=== PATIENT | male | born 1930 | race Caucasian/White ===

== ENCOUNTER 2016-06-17 09:54 | Emergency (ER) | payer MEDICARE ==
[~2016-06-17] VITALS: Ht 172.7 cm; Wt 84.1 kg
[~2016-06-17 09:54] MED LIST: ASPIRIN E.C. 8181 MG PO; COZAAR100 MG PO; ZESTRIL 10MG10 MG PO; ZOCOR 20MG20 MG PO; ZOFRAN ODT4 MG PO
[2016-06-17 10:00] VITALS: TEMP 98
[2016-06-17 12:45] LABS: BASO % 0.5 % (0.0-2.0); EOS # 0.2 (0.0-0.7); EOS % 2.9 % (0-4.0); GRAN % 60.7 % (42.2-75.2); HEMATOCRIT 45.5 % (42.0-52.0); HEMOGLOBIN 15.5 g/dl (13.5-18.0); LYMPH # 1.8 (1.2-3.4); LYMPH % 27.3 % (20.0-51.0); MEAN CELL VOLUME 87 fl (80.0-100.0); MEAN CORPUSCULAR HEMOGLOBIN 30 pg (27.0-31.0); MEAN CORPUSCULAR HGB CONC 34 g/dl (33.0-37.0); MEAN PLATELET VOLUME 9.5 fl (7.4-10.4); MONO # 0.5 (0.1-0.6); MONO % 8.1 % (1.7-9.3); PLATELET COUNT 158 K/mm3 (130-400); RED BLOOD COUNT 5.22 M/mm3 (4.20-5.60); WHITE BLOOD COUNT 6.6 K/mm3 (4.8-10.8)
[2016-06-17 12:50] LABS: CALCIUM 10.5 mg/dL (8.4-10.2); CREATININE, serum 1.24 mg/dL (0.66-1.25); POTASSIUM 4.6 mmol/L (3.4-5.0)
[2016-06-17] MEDS ORDERED: NORVASC 5MG5 MG/TAB PO (13:52)
[2016-06-17 14:03] VITALS: BP 194/91; PULSE 50
== END 2016-06-17 14:06 | disposition home or self-care (01) ==
LOC: COL.ER 09:54
PROVIDERS: Emergency Medicine
DX: S06.0X0A Concussion without loss of consciousness, initial encounter (principal); I10 Essential (primary) hypertension; W17.2XXA Fall into hole, initial encounter; R00.1 Bradycardia, unspecified; I44.0 Atrioventricular block, first degree
CPT/HCPCS: J1885